=== PATIENT | female | born 1935 | race Caucasian/White ===

== ENCOUNTER 2017-06-01 10:42 | Emergency (ER) | payer MEDICARE, BC ==
[~2017-06-01] VITALS: Ht 162.6 cm; Wt 56.8 kg
[2017-06-01 10:43] VITALS: TEMP 97.5
[2017-06-01] MEDS ORDERED: LEVOXYL0.075 MG PO (10:56)
[2017-06-01] MEDS ORDERED: LIPITOR20 MG PO (10:56)
[2017-06-01] MEDS ORDERED: CARDIZEM CD 24240 MG PO (10:56)
[2017-06-01] MEDS ORDERED: BALSALAZIDE DI750 MG PO (10:57)
[2017-06-01] MEDS ORDERED: ASPIRIN 81M81 MG/TA2 PO (10:57)
[2017-06-01] MEDS ORDERED: FINACEA15% TOP (10:58)
[2017-06-01] MEDS ORDERED: METROGEL1% TOP (10:58)
[2017-06-01] MEDS ORDERED: SYSTANE NIGHTT3.5 GM OU (10:59)
[2017-06-01 13:18] LABS: BASO # 0.1 (0.0-0.2); BASO % 0.3 % (0.0-2.0); EOS % 0.1 % (0-4.0); GRAN # 16.8 (1.4-6.5); GRAN % 89.1 % (42.2-75.2); LYMPH # 1.2 (1.2-3.4); LYMPH % 6.2 % (20.0-51.0); MEAN CELL VOLUME 92 fl (80.0-100.0); MEAN CORPUSCULAR HGB CONC 33 g/dl (33.0-37.0); MEAN PLATELET VOLUME 10.6 fl (7.4-10.4); MONO # 0.7 (0.1-0.6); MONO % 3.7 % (1.7-9.3); PLATELET COUNT 227 K/mm3 (130-400); RED BLOOD COUNT 3.73 M/mm3 (4.10-5.30); REDCELL DISTRIBUTION WIDTH-CV 12.9 % (11.5-14.5)
[2017-06-01 13:20] LABS: HEMATOCRIT 34.4 % (37.0-47.0); HEMOGLOBIN 11.3 g/dl (12.5-16.0); MEAN CORPUSCULAR HEMOGLOBIN 30 pg (27.0-31.0)
[2017-06-01 13:27] LABS: ALANINE AMINOTRANSFERASE 136 U/L (9-52); ALBUMIN 4.6 gm/dL (3.5-5.0); ALKALINE PHOSPHATASE 82 U/L (50-136); ANION GAP 10 mmol/L (7-16); AST,SGOT 248 U/L (15-37); BILIRUBIN,TOTAL 0.6 mg/dL (0.0-1.0); BLOOD UREA NITROGEN 20 mg/dL (7-17); CALCIUM 9.2 mg/dL (8.4-10.2); CARBON DIOXIDE 26 mmol/L (22-30); CHLORIDE 103 mmol/L (98-107); CREATININE, serum 0.61 mg/dL (0.52-1.25); GLUCOSE 122 mg/dL (74-106); SODIUM 139 mmol/L (137-145); TOTAL PROTEIN 7.4 gm/dL (6.4-8.2)
[2017-06-01 13:43] LABS: TROPONIN-I < 0.012 ng/mL (0.000-0.034)
[2017-06-01 18:21] VITALS: BP 167/74; PULSE 76
== END 2017-06-01 15:35 | disposition home or self-care (01) ==
LOC: COL.ER 10:42
PROVIDERS: Physician Assistant
DX: S62.102A Fracture of unspecified carpal bone, left wrist, initial encounter for closed fracture (principal); S01.111A Laceration without foreign body of right eyelid and periocular area, initial encounter; Z79.82 Long term (current) use of aspirin; Z90.710 Acquired absence of both cervix and uterus; Z90.10 Acquired absence of unspecified breast and nipple; W01.198A Fall on same level from slipping, tripping and stumbling with subsequent striking against other object, initial encounter; Y92.410 Unspecified street and highway as the place of occurrence of the external cause
CPT/HCPCS: J1885; J2250; J2405; J2704; J3010

== ENCOUNTER → 2018-07-18 | Outpatient (CLI) | payer MEDICARE, BC ==
[~2018-07-18] MED LIST: ASPIRIN 81M81 MG/TA2 PO; BALSALAZIDE DI750 MG PO; CARDIZEM CD 24240 MG PO; FINACEA15% TOP; LEVOXYL0.075 MG PO; LIPITOR20 MG PO; METROGEL1% TOP; SYSTANE NIGHTT3.5 GM OU
== END ==
LOC: MC.RAD 13:52
DX: Z12.31 Encounter for screening mammogram for malignant neoplasm of breast (principal)

== ENCOUNTER → 2019-04-15 | Outpatient (CLI) | payer MEDICARE, BC | LOC: COL.RAD 08:27 | DX: R39.198 Other difficulties with micturition (principal) ==

== ENCOUNTER → 2019-07-24 | Outpatient (CLI) | payer MEDICARE, BC | LOC: MC.RAD 11:08 | DX: Z12.31 Encounter for screening mammogram for malignant neoplasm of breast (principal) ==

== ENCOUNTER 2020-03-31 09:28 | Emergency (ER) | payer MEDICARE, BC ==
[~2020-03-31] VITALS: Ht 162.6 cm; Wt 52.0 kg
[2020-03-31 09:35] VITALS: TEMP 97.8
[2020-03-31 10:15] LABS: BASO # 0.1 (0.0-0.2); BASO % 0.9 % (0.0-2.0); EOS # 0.1 (0.0-0.7); EOS % 0.8 % (0-4.0); GRAN # 6.9 (1.4-6.5); GRAN % 72.1 % (42.2-75.2); HEMOGLOBIN 11.1 g/dl (12.5-16.0); LYMPH # 1.9 (1.2-3.4); LYMPH % 20.3 % (20.0-51.0); MEAN CELL VOLUME 93 fl (80.0-100.0); MEAN CORPUSCULAR HEMOGLOBIN 30 pg (27.0-31.0); MEAN CORPUSCULAR HGB CONC 32 g/dl (33.0-37.0); MEAN PLATELET VOLUME 10.7 fl (7.4-10.4); MONO # 0.5 (0.1-0.6); MONO % 5.6 % (1.7-9.3); PLATELET COUNT 264 K/mm3 (130-400); REDCELL DISTRIBUTION WIDTH-CV 13.3 % (11.5-14.5)
[2020-03-31 10:21] LABS: HEMATOCRIT 34.4 % (37.0-47.0)
[2020-03-31 10:26] LABS: ALANINE AMINOTRANSFERASE 15 U/L (4-34); ALBUMIN 4.8 gm/dL (3.5-5.0); ALKALINE PHOSPHATASE 59 U/L (50-136); ANION GAP 11 mmol/L (7-16); AST,SGOT 29 U/L (15-37); BILIRUBIN,TOTAL 0.8 mg/dL (0.0-1.0); BLOOD UREA NITROGEN 21 mg/dL (7-17); CALCIUM 9.5 mg/dL (8.4-10.2); CARBON DIOXIDE 26 mmol/L (22-30); CHLORIDE 101 mmol/L (98-107); CREATININE, serum 0.92 (0.52-1.25); GLUCOSE 132 mg/dL (74-106); LIPASE 86 U/L (23-300); POTASSIUM 4.3 mmol/L (3.4-5.0); SODIUM 138 mmol/L (137-145)
[2020-03-31 10:30] LABS: C-REACTIVE PROTEIN < 0.5 mg/dL (0.0-0.9)
[2020-03-31 11:24] LABS: COLLECTION METHOD CLEAN CATCH
[2020-03-31 11:43] LABS: PH 7 (5-8); SQUAMOUS EPITHELIAL 0-2 /hpf; URINE APPEARANCE Clear; URINE BACTERIA None Seen /hpf; URINE BILIRUBIN Negative (NEGATIVE); URINE BLOOD Negative (NEGATIVE); URINE COLOR Yellow; URINE GLUCOSE Negative (NEGATIVE); URINE KETONE Negative (NEGATIVE); URINE LEUKOCYTE ESTERASE Negative (NEGATIVE); URINE NITRATE Negative (NEGATIVE); URINE PROTEIN(semi-quant) Negative (NEGATIVE); URINE RBC 0-2 /hpf; URINE UROBILINOGEN Negative (NEGATIVE)
[2020-03-31 12:25] VITALS: BP 144/67; PULSE 86
== END 2020-03-31 12:22 | disposition home or self-care (01) ==
LOC: COL.ER 09:28
PROVIDERS: Emergency Medicine
DX: R10.32 Left lower quadrant pain (principal); Z88.8 Allergy status to other drugs, medicaments and biological substances; Z79.82 Long term (current) use of aspirin
CPT/HCPCS: J7030; Q9967

== ENCOUNTER → 2023-09-20 | Outpatient (REF) | payer MEDICARE ==
[~2023-09-20] MED LIST changes: +ASPIRIN E.C. 8181 MG PO; +B-121000 MCG PO; +BENICAR 20MG TA20 MG PO; +CARDIZEM LA240 MG PO; +MAGNESIUM250 M1 PO; +NATURAL IRON65 MG PO; +NITROSTAT0.3 MG SL; +NORCO 325 MG-51 TAB PO; +OSCAL 500 TAB500 MG PO; +SYNTHROID0.075 MG/T PO; +TYLENOL 325MG325 MG PO; +VITAMIN D31000 I1 PO; +VITAMINC1000TA PO
[2023-09-20 11:14] LABS: BASO # 0.1 K/mm3 (0.0-0.2); BASO % 1.5 % (0.0-2.0); EOS # 0.2 K/mm3 (0.0-0.7); GRAN # 4.8 K/mm3 (1.4-6.5); GRAN % 65.5 % (42.2-75.2); LYMPH # 1.6 K/mm3 (1.2-3.4); LYMPH % 22.2 % (20.0-51.0); MEAN CELL VOLUME 99 fl (80.0-100.0); MEAN CORPUSCULAR HGB CONC 31 g/dl (33.0-37.0); MEAN PLATELET VOLUME 10.3 fl (7.4-10.4); MONO # 0.5 K/mm3 (0.1-0.6); MONO % 7.3 % (1.7-9.3); PLATELET COUNT 419 K/mm3 (130-400); RED BLOOD COUNT 3.17 M/mm3 (4.10-5.30); REDCELL DISTRIBUTION WIDTH-CV 16.3 % (11.5-14.5)
[2023-09-20 11:16] LABS: HEMATOCRIT 31.4 % (37.0-47.0); HEMOGLOBIN 9.8 g/dl (12.5-16.0); MEAN CORPUSCULAR HEMOGLOBIN 31 pg (27-31)
[2023-09-20 11:27] LABS: CALCIUM 8.9 mg/dL (8.4-10.2); CREATININE, serum 0.75 mg/dL (0.57-1.11); POTASSIUM 5.1 mEq/L (3.5-4.5)
== END ==
LOC: ZCOL.LAB 10:56
PROVIDERS: Internal Medicine
DX: D64.9 Anemia, unspecified (principal)